=== PATIENT | female | born 1980 | race Caucasian/White ===

== ENCOUNTER 2018-05-02 11:01 | Outpatient (CLI) | payer SELFPAY ==
[~2018-05-02] VITALS: Ht 147.3 cm; Wt 77.3 kg
[2018-05-02] MEDS ORDERED: PRENATAL MVI (11:30)
[2018-05-02 12:00] VITALS: BP 118/69; PULSE 68; TEMP 98.5
[2018-05-02 12:30] VITALS: BP 101/55; PULSE 77
[2018-05-02 13:00] VITALS: BP 132/69; PULSE 88
[2018-05-02 13:25] VITALS: BP 104/69; PULSE 63
== END 2018-05-02 13:40 ==
LOC: LDRO 11:01
DX: O62.9 Abnormality of forces of labor, unspecified (principal); Z3A.39 39 weeks gestation of pregnancy

== ENCOUNTER 2018-05-02 23:55 | Inpatient (IN) | payer OTHER ==
[~2018-05-02] VITALS: Ht 147.3 cm; Wt 77.3 kg
[~2018-05-02 23:55] MED LIST: PRENATAL MVI
[2018-05-03] VITALS (13 sets, daily range): BP systolic 101–128; BP diastolic 49–64; PULSE 71–83; TEMP 97.6–98.6
[2018-05-03 01:45] LABS: BASO % 0.2 % (0.0-2.0); EOS % 0.1 % (0-4.0); GRAN # 15.2 (1.4-6.5); GRAN % 82.2 % (42.2-75.2); HEMATOCRIT 39.3 % (37.0-47.0); HEMOGLOBIN 13.8 g/dl (12.5-16.0); LYMPH # 2.6 (1.2-3.4); LYMPH % 13.8 % (20.0-51.0); MEAN CELL VOLUME 97 fl (80.0-100.0); MEAN CORPUSCULAR HEMOGLOBIN 34 pg (27.0-31.0); MEAN CORPUSCULAR HGB CONC 35 g/dl (33.0-37.0); MEAN PLATELET VOLUME 10.2 fl (7.4-10.4); MONO # 0.6 (0.1-0.6); MONO % 3.3 % (1.7-9.3); PLATELET COUNT 240 K/mm3 (130-400); RED BLOOD COUNT 4.04 M/mm3 (4.10-5.30); REDCELL DISTRIBUTION WIDTH-CV 11.7 % (11.5-14.5)
[2018-05-03 06:35] LABS: TRICYCLIC ANTIDEPRESS URINE NEGATIVE
[2018-05-04 07:45] VITALS: BP 110/56; PULSE 66; TEMP 97.6
[2018-05-04] MEDS ORDERED: IBU800 M1 PO (09:49)
== END 2018-05-04 15:05 | disposition home or self-care (01) | DRG 807 ==
LOC: LDRO 23:55 → LDR 05-03 01:37 → OB 05-03 07:30
PROVIDERS: Obstetrics & Gynecology
PROC: 10E0XZZ Delivery of Products of Conception, External Approach (ICD-10-PCS; principal; 2018-05-03)
PROC: 0KQM0ZZ Repair Perineum Muscle, Open Approach (ICD-10-PCS; 2018-05-03)
DX: O70.1 Second degree perineal laceration during delivery (principal); Z37.0 Single live birth; Z3A.40 40 weeks gestation of pregnancy; O77.0 Labor and delivery complicated by meconium in amniotic fluid; O69.81X0 Labor and delivery complicated by cord around neck, without compression, not applicable or unspecified
CPT/HCPCS: J2590; J7120